=== PATIENT | male | born 1990 | race Caucasian/White ===

== ENCOUNTER 2019-06-24 18:38 | Emergency (ER) | payer BC ==
[~2019-06-24] VITALS: Ht 182.9 cm; Wt 68.0 kg
--- NOTE | 2019-06-24 19:00 | NUR ---
PT BIBS. AAOX4. AMBULATORY. PT C/O CHEST PAIN 5/10 MIDSTERNAL RADIATING TO BACK SINCE SATUDAY. PT STATING HIS CHEST HURTS UPON INHALATION AND EXHALATION. RR EVEN AND UNLABORED. PT PLACED ON MONITOR AND PULSE OX. NO ACUTE DISTRESS NOTED.
--- NOTE | 2019-06-24 19:12 | NUR ---
LABS COLLECTED AND SENT TO LAB
[2019-06-24 19:19] LABS: BASOPHILS % (AUTO) 0.4 % (0.0-2.0); EOSINOPHILS % (AUTO) 2.6 % (0.0-6.0); HEMATOCRIT 46 % (39-51); HEMOGLOBIN 16.3 g/dL (13.5-17.5); LYMPHOCYTES # (AUTO) 1.9 /CMM (0.8-4.8); LYMPHOCYTES % (AUTO) 39.6 % (20.0-44.0); MEAN CORPUSCULAR HGB CONC 35 g/dl (31.0-36.0); MEAN CORPUSCULAR VOLUME 95 fL (80-96); MONOCYTES # (AUTO) 0.7 /CMM (0.1-1.30); MONOCYTES % (AUTO) 13.8 % (2.0-12.0); NEUTROPHILS # (AUTO) 2.1 /CMM (1.8-8.9); NEUTROPHILS % (AUTO) 43.6 % (43.0-81.0); PLATELET COUNT (AUTO) 169 /CMM (150-450); RED BLOOD CELL COUNT(AUTO) 4.87 MIL/uL (4.5-6.0); WHITE BLOOD COUNT (AUTO) 4.7 K/uL (4.3-11.0)
--- NOTE | 2019-06-24 19:22 | NUR ---
XRAY AT BEDSIDE
[2019-06-24 19:35] LABS: CARBON DIOXIDE 30 mmol/L (21-32); CHLORIDE 103 mmol/L (98-107); GLUCOSE 77 mg/dL (74-106); POTASSIUM 4.1 mmol/L (3.5-5.1); SODIUM SERUM 140 mmol/L (136-145); UREA NITROGEN, BLOOD 13 mg/dL (7-18)
--- NOTE | 2019-06-24 20:48 | NUR ---
Patient is resting comfortably in bed. Easily aroused. VSS.
--- NOTE | 2019-06-24 21:26 | NUR ---
Patient discharged to home in stable condition. Written and verbal after care instructions given. Patient verbalizes understanding of instruction. IV removed. Catheter intact and site benign. Pressure and 4x4 applied to site. No bleeding noted. PT ambulatory with a steady gait.
[2019-06-24 21:27] VITALS: BP 112/76
== END 2019-06-24 21:27 | disposition home or self-care (01) ==
LOC: ER 18:43
DX: R07.89 Other chest pain (principal); F17.200 Nicotine dependence, unspecified, uncomplicated
CPT/HCPCS: 36415; 71045-TC; 80048-TC; 84484-TC; 85025-TC

== ENCOUNTER 2019-08-13 11:15 | Outpatient (CLI) | payer BC | END 2019-08-13 23:59 | disposition home or self-care (01) | LOC: MSC 11:15 | PROVIDERS: ATTEND Internal Medicine | DX: K52.9 Noninfective gastroenteritis and colitis, unspecified (principal); Z83.1 Family history of other infectious and parasitic diseases; Z87.891 Personal history of nicotine dependence; F19.10 Other psychoactive substance abuse, uncomplicated ==